=== PATIENT | female | born 1980 | race African-American/Black ===

== ENCOUNTER 2017-05-07 18:45 | Emergency (ER) | payer OTHER ==
--- NOTE | 2017-05-07 19:20 | PDOC ---
History of Present Illness - General History Source: Patient Exam Limitations: No Limitations - History of Present Illness Initial Comments: 05/07/17 20:15 The patient is a 36 year old female, with no significant past medical history, who presents to the emergency department with intermittent headaches for the past month but worsening in the past week. The patient describes her headache as throbbing. She additionally states that she has been unable to sleep for the past 4 days secondary to her symptoms. She does report that she has had high blood pressure the past two times she has had her blood pressure measured but that she does not take any medication for high blood pressure. The patient does state that she has been stressed out at work lately and hasn't been sleeping well at night so she has been exhausted during the day. The patient denies fever , chills, nausea, vomiting or any recent illnesses. The patient denies shortness of breath or chest pain. Allergies: None reported. Past Surgical History: Orthopedic Surgery (1997). Social History: Non-smoker. Denies alcohol or drug use. <Abi Velázquez - Last Filed: 05/07/17 20:47> <Reema Zavaleta - Last Filed: 05/08/17 03:15> - General Chief Complaint: Head/Neck problem Stated Complaint: LEFT ARM TINGLING FOR 24 HOURS Time Seen by Provider: 05/07/17 19:20 Past History <Abi Velázquez - Last Filed: 05/07/17 20:47> - Past Medical History COPD: No HTN: Yes (PT HAD A PRIOR EPISODE OF UNTREATED HYPERTENSION) - Suicide/Smoking/Psychosocial Hx Smoking History: Never smoked Information on smoking cessation initiated: No Hx Alcohol Use: No Drug/Substance Use Hx: No Substance Use Type: None <Reema Zavaleta - Last Filed: 05/08/17 03:15> - Past Medical History Allergies/Adverse Reactions: Allergies Allergy/AdvReac Type Severity Reaction Status Date / Time No Known Allergies Allergy Unverified 05/07/17 18:46 Home Medications: Ambulatory Orders NK [No Known Home Medication] 05/07/17 Review of Systems - Review of Systems Able to Perform ROS?: Yes Comments:: 05/07/17 19:55 GENERAL/CONSTITUTIONAL: No fever or chills. No weakness. HEAD, EYES, EARS, NOSE AND THROAT: No change in vision. No ear pain or discharge. No sore throat. CARDIOVASCULAR: No chest pain or shortness of breath. RESPIRATORY: No cough, wheezing, or hemoptysis. GASTROINTESTINAL: No nausea, vomiting, diarrhea or constipation. GENITOURINARY: No dysuria, frequency, or change in urination. MUSCULOSKELETAL: No joint or muscle swelling or pain. No neck or back pain. SKIN: No rash. NEUROLOGIC: +Headache. No vertigo, loss of consciousness, or change in strength/ sensation. ENDOCRINE: No increased thirst. No abnormal weight change. HEMATOLOGIC/LYMPHATIC: No anemia, easy bleeding, or history of blood clots. ALLERGIC/IMMUNOLOGIC: No hives or skin allergy. <Abi Velázquez - Last Filed: 05/07/17 20:47> *Physical Exam - Vital Signs Last Vital Signs Temp Pulse Resp BP Pulse Ox 98.9 F 100 H 20 146/103 99 05/07/17 18:45 05/07/17 18:45 05/07/17 18:45 05/07/17 18:45 05/07/17 18:45 - Physical Exam Comments: 05/07/17 20:00 GENERAL: Awake, alert, and fully oriented, in no acute distress. HEAD: No signs of trauma. EYES: PERRLA, EOMI, sclera anicteric, conjunctiva clear. ENT: Auricles normal inspection, hearing grossly normal, nares patent, oropharynx clear without exudates. Moist mucosa. NECK: Normal ROM, supple, no lymphadenopathy, JVD, or masses. LUNGS: Breath sounds equal, clear to auscultation bilaterally. No wheezes, and no crackles. HEART: Regular rate and rhythm, normal S1 and S2, no murmurs, rubs or gallops. ABDOMEN: Soft, nontender, normoactive bowel sounds. No guarding, no rebound. No masses. EXTREMITIES: Normal range of motion, no edema. No clubbing or cyanosis. No cords , erythema, or tenderness. NEUROLOGICAL: Cranial nerves II through XII intact. Normal speech, normal gait. SKIN: Warm, dry, normal turgor, no rashes or lesions noted. <Abi Velázquez - Last Filed: 05/07/17 20:47> - Vital Signs Last Vital Signs Temp Pulse Resp BP Pulse Ox 98.9 F 100 H 20 146/103 99 05/07/17 18:45 05/07/17 18:45 05/07/17 18:45 05/07/17 18:45 05/07/17 18:45 <Reema Zavaleta - Last Filed: 05/08/17 03:15> Heart Score/ECG Review #1 ECG reviewed & interpreted by me at: 19:54 (Vent Rate: 73 bpm. Normal sinus rhythm.) <Abi Velázquez - Last Filed: 05/07/17 20:47> ED Treatment Course - LABORATORY CBC & Chemistry Diagram: 05/07/17 20:20 05/07/17 20:20 <Abi Velázquez - Last Filed: 05/07/17 20:47> - LABORATORY CBC & Chemistry Diagram: 05/07/17 20:20 05/07/17 20:20 <Reema Zavaleta - Last Filed: 05/08/17 03:15> Medical Decision Making - Medical Decision Making 05/08/17 03:12 Pt is under general stress she has job, kids, and recently got into [facility]; she states that she hasn't been sleeping well and she is concerned as she has been experiencing left arm paresthesias, and she wanted to check it out before she and her family headed down to [place] for the weekend. Pt's exam is normal and her labs are normal. Her TSH was cancelled as there was QNS in the blood tube; pt is requesting that we not repeat her blood test herer and she will be asked to follow with her PMD. EKG is NSR; she will be asked to follow with PMD. <Reema Zavaleta - Last Filed: 05/08/17 03:15> *DC/Admit/Observation/Transfer - Attestations Scribe Attestion: 05/07/17 19:26 Documentation prepared by Abi Velázquez, acting as medical oncologist for Reema Zavaleta MD. <Abi Velázquez - Last Filed: 05/07/17 20:47> - Discharge Dispostion Admit: No <Reema Zavaleta - Last Filed: 05/08/17 03:15> Diagnosis at time of Disposition: Arm paresthesia, left - Discharge Dispostion Disposition: HOME Condition at time of disposition: Stable - Patient Instructions Printed Discharge Instructions: DI for Numbness/tingling
[2017-05-07 19:23] VITALS: BP 146/103; PULSE 100; TEMP 98.9; BMI 26.6
[2017-05-07] MEDS ORDERED: METOPROLOL SUCCINATE 25 MG TAB.SR.24H (FP) PO ONE (19:49)
[2017-05-07] MEDS ORDERED: diphenhydrAMINE HCL 25 MG CAPSULE (FP) PO ONE (19:50)
[2017-05-07] MEDS ORDERED: METOPROLOL SUCCINATE 50 MG TAB.SR.24H (FP) ONE (20:13)
[2017-05-07] MEDS ORDERED: diphenhydrAMINE HCL 50 MG CAPSULE ONE (20:13)
[2017-05-07 21:12] LABS: ALBUMIN 4.3 g/dl (3.5-5.0); ALK PHOS 54 U/L (32-92); ANION GAP 9 (8-16); BASO % 0.7 % (0-2.0); BILIRUBIN,TOTAL 0.7 mg/dl (0.2-1.0); BLOOD UREA NITROGEN 18 mg/dl (7-18); CALCIUM 9.3 mg/dl (8.4-10.2); CHLORIDE 106 mmol/L (98-107); CO2 21 mmol/L (22-28); CREATININE 0.8 mg/dl (0.6-1.3); EOS % 0.4 % (0-4.5); GLUCOSE,RANDOM 88 mg/dl (74-106); HEMATOCRIT 44.2 % (32.4-45.2); HEMOGLOBIN 14.4 GM/dl (10.7-15.3); LYMPH % 36.4 % (8-40); MCH 32.8 pg (25.7-33.7); MCHC 32.7 g/dl (32.0-36.0); MEAN CELL VOLUME 100.4 fl (80-96); MEAN PLT VOLUME 9.4 fl (7.5-11.1); MONO % 7.3 % (3.8-10.2); NEUT % 55.2 % (42.8-82.8); PLATELET COUNT 136 K/MM3 (134-434); POTASSIUM 3.8 mmol/L (3.5-5.1); RDW 12.8 % (11.6-15.6); SGOT/AST 21 U/L (10-42); SGPT/ALT 14 U/L (10-40); SODIUM 136 mmol/L (136-145); TOT PROT 7.2 g/dl (6.4-8.3); WHITE BLOOD COUNT 4.6 K/mm3 (4.0-10.8)
[2017-05-07 21:56] LABS: TROPONIN I (DFP) < 0.03 ng/ml (0.03-0.50)
--- NOTE | 2017-05-08 09:43 | EKG ---
Test Reason : Blood Pressure : / mmHG Vent. Rate : 073 BPM Atrial Rate : 073 BPM P-R Int : 128 ms QRS Dur : 082 ms QT Int : 382 ms P-R-T Axes : 042 046 048 degrees QTc Int : 420 ms NORMAL SINUS RHYTHM NORMAL ECG NO PREVIOUS ECGS AVAILABLE Confirmed by MD Pradeep, Gildardo ([id number]) on 05/08/2017 9:43:30 AM Referred By: DR ROWLAND Confirmed By:Gildardo Fernández MD
== END 2017-05-07 22:46 | disposition home or self-care (01) ==
LOC: FER 18:45
DX: R20.2 Paresthesia of skin (principal)
CPT/HCPCS: 36415; 80053; 82550; 84484; 85025; 93005; 99282-25

== ENCOUNTER 2025-01-13 18:43 | Emergency (ER) | payer BC, OTHER ==
[2025-01-13 19:06] VITALS: BP 156/108; PULSE 77; RESP 18; TEMP 98.2; BMI 29.2
[2025-01-13] MEDS ORDERED: IBUPROFEN 600 MG TABLET (FP) PO ONE (19:43)
[2025-01-13] MEDS: IBUPROFEN 600 MG TABLET (FP) PO ONE (19:52)
== END 2025-01-13 21:22 | disposition home or self-care (01) ==
LOC: FER 18:43
DX: S99.911A Unspecified injury of right ankle, initial encounter (principal); W01.198A Fall on same level from slipping, tripping and stumbling with subsequent striking against other object, initial encounter
CPT/HCPCS: 73560-TC-RT-FY; 73610-TC-RT-FY; 73630-TC-RT-FY; 99283-25